=== PATIENT | male | born 1960 | race Caucasian/White ===

== ENCOUNTER 2017-04-27 15:36 | Inpatient (IN) | payer OTHER ==
--- NOTE | ~2017-04-27 | DS ---
Discharge Summary [facility] [address] [place]. [address] NAME: JACK SAUL JR : 62 STATUS : DIS IN PAT#: [id number] AGE: 57 ADM/REG DATE : 04/27/17 MR#: [id number] REPORT SERV DATE: 05/01/17 DICTATED BY: DANIEL LIAO DATE: 04/30/17 REPORT STATUS : Draft TRANSCRIBED BY: MODL DATE: 04/30/17 ADMISSION DATE: 04/27/2017 DISCHARGE DATE: 04/30/2017 HISTORY OF PRESENT ILLNESS: This is a 57-year-old obese male with known history of noncompliant, but yet now wants to maintain compliance with insulin-dependent diabetes, A1c 10.6, nausea, vomiting, gastroparesis . Known history of TIM, on CPAP, questionable use. The patient is agreeable to take at least 4 hours CPAP at night. Fatty liver disease, likely complicated by diabetes. Neuropathy, on Lyrica, did not do well on gabapentin in the past. Has had poor followup with some of his physicians given many of them were in [place] and he recently moved here to [place], [place]. The patient came in with profuse nausea, vomiting, bilateral lower quadrant hypogastric abdominal pain, hyperglycemia. Thought to have had gastroparesis diabetic associated. Once euglycemia was maintained, his diet and nausea and vomiting improved dramatically. He is on less insulin than he was at home as a result of dietary diabetic compliance. CT abdomen and pelvis, no acute pathology except nonspecific hepatic steatosis pattern, likely fatty liver. Probable small right adrenal lipoma. The patient is amenable for weight loss, glycemic control via diet. Unclear about rotating his insulin injection sites on his abdomen, as a result we will have diabetic education prior to discharge. DISCHARGE MEDICATIONS: Include Lipitor 20 p.o. at bedtime, erythromycin 250 p.o. before meals for 10 days, NovoLog sliding scale, NovoLog 15 units subcutaneously t.i.d. before meals, Reglan 10 p.o. b.i.d. just for four weeks then taper down to 5 p.o. b.i.d., and then discontinue, Lyrica 100 p.o. b.i.d., Levemir or Lantus 40 subcutaneously q.a.m. and 30 subcutaneously at bedtime. Diabetic diet 25 p.o. daily. 2 g sodium restricted diet per day. CONSULTS: Diabetic education. PROCEDURES: None. DISCHARGE DIAGNOSES: See above includin. Gastroparesis. 2. Nausea. 3. Vomiting. 4. Insulin-dependent diabetes. 5. Acidosis. 6. Questionable compliance. 7. Obstructive sleep apnea. Discharge Summary [address] [address] NAME: JACK SAUL JR : 62 STATUS : DIS IN PAT#: [id number] AGE: 57 ADM/REG DATE : 04/27/17 MR#: [id number] REPORT SERV DATE: 05/01/17 DICTATED BY: DANIEL LIAO DATE: 04/30/17 REPORT STATUS : Draft TRANSCRIBED BY: CARROLL DATE: 04/30/17 8. Hypertension. It took over 30 minutes to do. DICTATED BY: Daniel Liao DO WST/CARROLL Daniel Liao DO / [id number] CC: Daniel Liao DO
--- NOTE | ~2017-04-27 | HP ---
History And Physical [id number] [facility] [address] [place]. [address] NAME: JACK AMEZQUITA JR : 62 STATUS : ADM Devyn PAT#: [id number] AGE: 57 ADM/REG DATE : 04/27/17 MR#: [id number] REPORT SERV DATE: 04/27/17 DICTATED BY: NIHARIKA GALVEZ DATE: 04/27/17 REPORT STATUS : Draft TRANSCRIBED BY: MODL DATE: 04/27/17 DATE OF ADMISSION: 04/27/2017 POINT OF ENTRY: [facility] Emergency Department. Primary care physician is Bala De Paz of [facility]. CHIEF COMPLAINT: Nausea, vomiting, and abdominal pain. HISTORY OF PRESENT ILLNESS: Mr. Amezquita is a 57-year-old, gentleman with history of uncontrolled insulin-dependent diabetes mellitus type 2 with recent hemoglobin A1c of 10.6 who presents here today with a three to four-day history of profuse nausea, vomiting, with bilateral lower quadrant abdominal pain. The patient states he has not felt well for the past one to two weeks. About four days ago, he states that he felt dizzy and stumbled a little bit getting out of bed. Beginning three days ago, he started develop intractable nausea and vomiting with associated bilateral lower quadrant abdominal pain. The patient states that he had almost nonstop vomiting for about 30 hours. Since then, he has been able to tolerate small amounts of water but unable tolerate any amount of solid intake. He does report some chronic mild amount of diarrhea which is unchanged for him. He denies any fevers, does report some diffuse drenching night sweats. Initial evaluation in the emergency department for vitals are otherwise stable except for some hypertension, labs notable for a sugar of 259. He does appear to be hemoconcentrated on his labs. CT scan of the abdomen and pelvis was unremarkable. The patient was given one L of IV fluids and admitted to the Hospitalist Service for further evaluation and management. The patient states he has a history of diabetic gastroparesis, is not currently taking any Reglan therapy. He denies any chest pain, palpitations, shortness of breath, cough, sputum production, melena, hematochezia, hemoptysis, or hematemesis. REVIEW OF SYSTEMS: Comprehensive review of system otherwise negative unless listed in history of present illness. PREVIOUS MEDICAL HISTORY: 1. Insulin-dependent diabetes mellitus, type 2, hemoglobin A1c of 10.6. 2. Obstructive sleep apnea, on CPAP therapy. 3. Fatty liver disease. 4. Diabetic gastroparesis. 5. Diabetic neuropathy. History And Physical [address] [address] NAME: JACK AMEZQUITA JR : 62 STATUS : ADM Devyn PAT#: [id number] AGE: 57 ADM/REG DATE : 04/27/17 MR#: [id number] REPORT SERV DATE: 04/27/17 DICTATED BY: NIHARIKA GALVEZ DATE: 04/27/17 REPORT STATUS : Draft TRANSCRIBED BY: CARROLL DATE: 04/27/17 SURGICAL HISTORY: Exploratory laparotomy. ALLERGIES: CODEINE AND BYETTA. HOME MEDICATIONS: 1. Toujeo 100 units daily. 2. Humalog 15 units with meals. 3. Lyrica 100 mg b.i.d. SOCIAL HISTORY: Denies any tobacco, alcohol, or illicits. He is currently on disability for his uncontrolled diabetes. FAMILY MEDICAL HISTORY: Mother with diabetes. Father with hypertension and sibling with prostate cancer. LABS AND IMAGIN. White blood cell 11.0, hemoglobin is 18.0, hematocrit 52.3, and platelets are 148. 2. Sodium is 136, potassium 4.1, chloride 99, carbon dioxide 28, BUN 18, creatinine 0.69, glucose is 259, calcium is 9.2, protein 7.3, albumin is 3.6, bilirubin is 0.8, ALT is 37, AST 18, and alkaline phosphatase is 76. 3. Lipase is 98. 4. CT scan of abdomen and pelvis shows no acute abdominopelvic pathology. No evidence of any obstruction. 5. Urinalysis; specific gravity is 1.032, hazy with positive protein, glucose, and ketones. No evidence of any infection. 6. EKG per my review shows normal sinus rhythm. No evidence of any acute ischemia or infarction. PHYSICAL EXAMINATION: VITAL SIGNS: Temperature is 97.7 degrees Fahrenheit, pulse is 82, respirations 16, saturating 95% on room air. Blood pressure is initially 191/99. On recheck, it is now 145/87. GENERAL: The patient is awake, alert, in no acute distress. Resting comfortably. He is a morbidly obese male. HEENT: Atraumatic and normocephalic. Slightly dry mucous membranes. Pupils are equal, round, reactive to light and accommodation. Extraocular eye movements are intact. No scleral icterus. NECK: No jugular venous distention. No carotid bruits. CARDIAC: Regular rate and rhythm. No murmurs or gallops. Normal S1, S2. LUNGS: Clear to auscultation bilaterally. No wheezes, rhonchi, or crackles. ABDOMEN: Soft, tender to palpation bilateral lower quadrants. No rebound, guarding, or rigidity. EXTREMITIES: Warm and well perfused. No cyanosis, clubbing, or edema. SKIN: Warm and dry. PSYCH: Affect appropriate. NEURO: Alert and oriented x3. Cranial nerves 2 through 12 grossly intact. Speech is normal. Gait not assessed. History And Physical [address] [address] NAME: JACK AMEZQUITA JR : 62 STATUS : ADM Devyn PAT#: [id number] AGE: 57 ADM/REG DATE : 04/27/17 MR#: [id number] REPORT SERV DATE: 04/27/17 DICTATED BY: NIHARIKA GALVEZ DATE: 04/27/17 REPORT STATUS : Draft TRANSCRIBED BY: CARROLL DATE: 04/27/17 ASSESSMENT AND PLAN: Mr. Amezquita is a 57-year-old, gentleman, presents with a three to four- day history of abdominal pain, nausea, vomiting, found to be dehydrated. Symptoms are likely due to either a viral gastritis versus diabetic gastroparesis exacerbation. PROBLEM LIST: 1. Nausea, vomiting, abdominal pain, likely diabetic gastroparesis exacerbation versus viral gastroenteritis. 2. Dehydration with hemoconcentration. 3. Insulin-dependent diabetes mellitus type 2 with hyperglycemia. 4. Hypertension. PLAN: 1. Nausea, vomiting, abdominal pain. Differential likely viral gastritis versus diabetic gastroparesis. We will treat supportively with IV fluids, antiemetics, pain control, as well as IV p.r.n. Reglan. CT of the abdomen and pelvis was unremarkable. We will continue to monitor. 2. Dehydration. Provide IV fluid hydration. 3. Insulin-dependent diabetes mellitus type 2 with hyperglycemia. We will continue patient's home NovoLog. We will dose reduce his Toujeo given poor oral intake. Place him on level 2 sliding scale. Recheck hemoglobin A1c. 4. Hypertension, likely secondary to pain as the patient has no prior history of hypertension. We will provide IV hydralazine p.r.n. for elevated blood pressure. 5. DVT prophylaxis. Lovenox subcu. CODE STATUS: The patient wishes to be full code. JCB/MODL Niharika Galvez MD / [id number] CC: Vonda Mckeon M.D.
[~2017-04-27 15:36] MED LIST: ADVIL PO; INVOKAMET PO; JANUMET XR 50-1 EAC1 PO; LANTUSCART SC; LEVEMIR SC; LYRICA PO; LYRICA100 MG PO; NOVOLOG SC; OSENI 25-30 MG1 EACH PO; REG5 PO
[2017-04-27 17:16] LABS: BASOPHILS 0.1 %; BASOPHILS ABSOLUTE 0.01 10/3/uL (0.0-0.16); EOSINOPHILS 0 %; ER CBC TAT 0 Hrs 05 Mins; IMMATURE GRANULOCYTES 0.2 %; IMMATURE GRANULOCYTES ABSOLUTE 0.02 10/3/uL (0.0-0.11); LYMPHOCYTES 11.6 %; LYMPHOCYTES ABSOLUTE 1.28 10/3/uL (0.67-4.30); MEAN CORPUS HGB CONC 34.4 g/dL (32.0-36.0); MEAN CORPUSCULAR HEMOGLOB 29.6 pg (26.0-34.0); MEAN PLATELET VOLUME 10.7 fL (9.2-13.0); MONOCYTES 7.6 %; MONOCYTES ABSOLUTE 0.84 10/3/uL (0.21-1.20); NEUTROPHILS 80.5 %; NEUTROPHILS ABSOLUTE 8.88 10/3/uL (2.02-8.40); PLATELET COUNT 148 10/3/uL (150-400); RED CELL COUNT 6.08 10/6/uL (4.7-6.1)
[2017-04-27 17:18] LABS: HEMATOCRIT 52.3 % (40.0-51.0); MANUAL DIFF NO %
[2017-04-27 17:22] LABS: ASCORBIC ACID (UR NOT ORDER) NEG (NEG); BILIRUBIN, URINE NEGATIVE (NEG); ER URINALYSIS TAT 0 Hrs 08 Mins; KETONE, URINE 80 MG/DL (NEG); LEUKOCYTE ESTERASE(NOT OR NEG (NEG); NITRITE (URINE) NEG (NEG); WBC (NOT ORDERED) (RFLEX) < 1 (0-5)
[2017-04-27 17:35] LABS: ALBUMIN 3.6 G/DL (3.5-5.0); ALKALINE PHOSPHATASE 76 U/L (45-117); BUN (BLOOD UREA NITROGEN) 18 MG/DL (6-23); CALCIUM, SERUM 9.2 MG/DL (8.5-10.4); CHLORIDE, SERUM 99 MMOL/L (96-112); CO2 (CARBON DIOXIDE) 28 MMOL/L (24-34); CREATININE 0.69 MG/DL (0.70-1.30); GFR AFRICAN AMERICAN 123 ML/MIN (>=60); GFR NON AFRICAN AMERICAN 106 ML/MIN (>=60); GLOBULIN 3.7 G/DL (2.5-4.1); POTASSIUM, SERUM 4.1 MMOL/L (3.5-5.3); SGOT(AST) 18 U/L (5-40); SGPT(ALT) 37 U/L (5-65); SODIUM, SERUM 136 MMOL/L (135-148); TOTAL BILIRUBIN 0.8 MG/DL (0-1.2); TOTAL PROTEIN 7.3 G/DL (6.0-8.5)
[2017-04-27 17:36] LABS: GLUCOSE, SERUM 259 MG/DL (60-99)
[2017-04-27] MEDS ORDERED: LYRICA100 MG PO (18:46)
[2017-04-27] MEDS ORDERED: TOUJEO SC (18:46)
[2017-04-27] MEDS ORDERED: HUMALOG SC (18:46)
[2017-04-27 23:01] LABS: TROPONIN I 0.02 NG/ML (<0.05)
[2017-04-27 23:20] LABS: PROCALCITONIN <0.05 ng/mL (<0.5)
[2017-04-28 06:17] LABS: BASOPHILS 0.1 %; BASOPHILS ABSOLUTE 0.01 10/3/uL (0.0-0.16); EOSINOPHILS 0.1 %; EOSINOPHILS ABSOLUTE 0.01 10/3/uL (0.0-0.53); HEMATOCRIT 51.4 % (40.0-51.0); HEMOGLOBIN 17.4 g/dL (13.6-17.8); IMMATURE GRANULOCYTES 0.2 %; IMMATURE GRANULOCYTES ABSOLUTE 0.03 10/3/uL (0.0-0.11); LYMPHOCYTES 14.3 %; LYMPHOCYTES ABSOLUTE 1.79 10/3/uL (0.67-4.30); MEAN CORPUS HGB CONC 33.9 g/dL (32.0-36.0); MEAN CORPUSCULAR HEMOGLOB 29.5 pg (26.0-34.0); MEAN CORPUSCULAR VOLUME 87.1 fL (80-100); MEAN PLATELET VOLUME 10.6 fL (9.2-13.0); MONOCYTES 12.1 %; MONOCYTES ABSOLUTE 1.52 10/3/uL (0.21-1.20); NEUTROPHILS 73.2 %; PLATELET COUNT 162 10/3/uL (150-400); RBC DISTRIBUTION WIDTH 13.9 % (12.0-16.0); WHITE BLOOD CELLS 12.6 10/3/uL (4.5-10.5)
[2017-04-28 06:20] LABS: MANUAL DIFF NO %
[2017-04-28 06:26] LABS: BUN (BLOOD UREA NITROGEN) 18 MG/DL (6-23); CALCIUM, SERUM 8.4 MG/DL (8.5-10.4); CHLORIDE, SERUM 102 MMOL/L (96-112); CREATININE 0.68 MG/DL (0.70-1.30); GFR AFRICAN AMERICAN 124 ML/MIN (>=60); GFR NON AFRICAN AMERICAN 107 ML/MIN (>=60); GLUCOSE, SERUM 220 MG/DL (60-99); POTASSIUM, SERUM 3.9 MMOL/L (3.5-5.3); SODIUM, SERUM 134 MMOL/L (135-148)
[2017-04-28 06:28] LABS: CO2 (CARBON DIOXIDE) 22 MMOL/L (24-34)
[2017-04-29 06:19] LABS: CALCIUM, SERUM 8.2 MG/DL (8.5-10.4); CHLORIDE, SERUM 106 MMOL/L (96-112); CO2 (CARBON DIOXIDE) 23 MMOL/L (24-34); CREATININE 0.69 MG/DL (0.70-1.30); GFR AFRICAN AMERICAN 123 ML/MIN (>=60); GFR NON AFRICAN AMERICAN 106 ML/MIN (>=60); POTASSIUM, SERUM 3.5 MMOL/L (3.5-5.3); SODIUM, SERUM 139 MMOL/L (135-148)
[2017-04-29 06:21] LABS: BUN (BLOOD UREA NITROGEN) 14 MG/DL (6-23); GLUCOSE, SERUM 104 MG/DL (60-99)
[2017-04-29 06:45] LABS: BASOPHILS 0.4 %; EOSINOPHILS 1.1 %; EOSINOPHILS ABSOLUTE 0.1 10/3/uL (0.0-0.5); HEMATOCRIT 49.2 % (40.0-51.0); HEMOGLOBIN 16.3 g/dL (13.6-17.8); LYMPHOCYTES 28.4 %; LYMPHOCYTES ABSOLUTE 2.6 10/3/uL (0.7-4.3); MEAN CORPUS HGB CONC 33.1 g/dL (32.0-36.0); MEAN CORPUSCULAR HEMOGLOB 28.7 pg (26.0-34.0); MEAN CORPUSCULAR VOLUME 86.7 fL (80-100); MEAN PLATELET VOLUME 8.9 fL (6.8-10.8); MONOCYTES 11.1 %; NEUTROPHILS ABSOLUTE 5.5 10/3/uL (2.0-8.4); PLATELET COUNT 151 10/3/uL (150-400); RBC DISTRIBUTION WIDTH 14.4 % (12.0-16.0); RED CELL COUNT 5.67 10/6/uL (4.7-6.1); WHITE BLOOD CELLS 9.3 10/3/uL (4.5-10.5)
[2017-04-29 06:51] LABS: MANUAL DIFF NO %
[2017-04-30 09:44] LABS: BASOPHILS 0.2 %; BASOPHILS ABSOLUTE 0.02 10/3/uL (0.0-0.16); EOSINOPHILS 1.4 %; EOSINOPHILS ABSOLUTE 0.13 10/3/uL (0.0-0.53); HEMATOCRIT 49.7 % (40.0-51.0); HEMOGLOBIN 17.2 g/dL (13.6-17.8); IMMATURE GRANULOCYTES 0.2 %; IMMATURE GRANULOCYTES ABSOLUTE 0.02 10/3/uL (0.0-0.11); LYMPHOCYTES 18.9 %; MANUAL DIFF NO %; MEAN CORPUS HGB CONC 34.6 g/dL (32.0-36.0); MEAN CORPUSCULAR HEMOGLOB 29.8 pg (26.0-34.0); MEAN PLATELET VOLUME 10.3 fL (9.2-13.0); MONOCYTES 9.5 %; MONOCYTES ABSOLUTE 0.85 10/3/uL (0.21-1.20); NEUTROPHILS 69.8 %; NEUTROPHILS ABSOLUTE 6.27 10/3/uL (2.02-8.40); PLATELET COUNT 145 10/3/uL (150-400); RBC DISTRIBUTION WIDTH 14.1 % (12.0-16.0); RED CELL COUNT 5.78 10/6/uL (4.7-6.1)
[2017-04-30 09:56] LABS: BUN (BLOOD UREA NITROGEN) 12 MG/DL (6-23); CALCIUM, SERUM 8.3 MG/DL (8.5-10.4); CHLORIDE, SERUM 104 MMOL/L (96-112); CO2 (CARBON DIOXIDE) 25 MMOL/L (24-34); CREATININE 0.68 MG/DL (0.70-1.30); GFR AFRICAN AMERICAN 124 ML/MIN (>=60); GFR NON AFRICAN AMERICAN 107 ML/MIN (>=60); GLUCOSE, SERUM 213 MG/DL (60-99); POTASSIUM, SERUM 3.8 MMOL/L (3.5-5.3); SODIUM, SERUM 135 MMOL/L (135-148)
[2017-04-30] MEDS ORDERED: REG PO (12:43)
[2017-04-30] MEDS ORDERED: LYRICA100 MG PO (12:44)
[2017-04-30] MEDS ORDERED: LEVEMIR SC (12:44)
[2017-04-30] MEDS ORDERED: COZ25 PO (12:45)
[2017-04-30] MEDS ORDERED: ERY-TAB250 MG PO (12:46)
[2017-04-30] MEDS ORDERED: LIPITOR20 PO (12:46)
[2017-04-30] MEDS ORDERED: NOVOLOG SC ×2 (12:47→12:48)
== END 2017-04-30 13:46 | disposition home or self-care (01) | DRG 74 ==
LOC: ER 15:36 → 5SO 19:08
PROVIDERS: Emergency Medicine; Internal Medicine
DX: E11.43 Type 2 diabetes mellitus with diabetic autonomic (poly)neuropathy (principal); E87.2 Acidosis; K31.84 Gastroparesis; G47.33 Obstructive sleep apnea (adult) (pediatric); I10 Essential (primary) hypertension; Z88.8 Allergy status to other drugs, medicaments and biological substances; Z88.5 Allergy status to narcotic agent; Z79.84 Long term (current) use of oral hypoglycemic drugs; Z79.899 Other long term (current) drug therapy; Z83.3 Family history of diabetes mellitus; Z82.49 Family history of ischemic heart disease and other diseases of the circulatory system; Z80.42 Family history of malignant neoplasm of prostate; E86.0 Dehydration; E66.9 Obesity, unspecified; E11.65 Type 2 diabetes mellitus with hyperglycemia
CPT/HCPCS: 71020; 74176; 80048; 80053; 81001; 82962; 83036; 83605; 83690; 84145; 84484; 85025; 93005; 96374; 99285; A9270-GY; J0360; J1170; J2405; J2765